=== PATIENT | male | born 1990 | race African-American/Black ===

== ENCOUNTER 2018-07-07 19:42 | Emergency (ER) | payer OTHER ==
[2018-07-07 20:04] VITALS: BP 125/81; PULSE 73; RESP 18; TEMP 97.8
[2018-07-07] MEDS ORDERED: LIDOCAINE 1% INJ 10MG/ML (20 ML MDV) SQ ONE (20:14)
[2018-07-07] MEDS ORDERED: IBUPROFEN 800 MG TAB PO STA (21:17)
--- NOTE | 2018-07-07 21:17 | ED ---
Wound/Laceration HPI - General Chief Complaint: Wound/Laceration Stated Complaint: laceration on forehead Source: patient Mode of arrival: ambulatory Limitations: no limitations - History of Present Illness Initial Comments: 28-year-old male with past medical history of substance abuse presenting today from [place] for right forehead laceration. Patient states at 1:15 PM this afternoon he was opening a door and opened onto his right forehead. He denies fall, loss of conscious, headache, nausea, vomiting, dizziness, diplopia , visual changes or vision loss following incident. Patient denies any bruising of the eyes or swelling. Patient states it hit the right side of forehead just superior to the right eyebrow. Patient states he thought that the area might need sutures and presents emergency department for evaluation. Patient states that his tetanus is up-to-date in the last 5 years. Remainder of ROS negative, patient denies any recent fever, chills, shortness of breath, chest pain, back pain, abdominal pain, nausea or vomiting, numbness or tingling , dysuria or hematuria, constipation or diarrhea, or any other complaints. - Related Data Allergies Allergy/AdvReac Type Severity Reaction Status Date / Time No Known Allergies Allergy Verified 07/07/18 20:04 Review of Systems ROS Statement: Those systems with pertinent positive or pertinent negative responses have been documented in the HPI. ROS Other: All systems not noted in ROS Statement are negative. Past Medical History Past Medical History: No Reported History History of Any Multi-Drug Resistant Organisms: None Reported Past Surgical History: No Surgical Hx Reported Past Psychological History: No Psychological Hx Reported Smoking Status: Current every day smoker Past Alcohol Use History: None Reported Past Drug Use History: Cocaine, Heroin, Marijuana General Exam - General Exam Comments Initial Comments: General: The patient is awake and alert, in no distress, and does not appear acutely ill. Eye: +3 mm pupils are equal, round and reactive to light, extra-ocular movements are intact. No nystagmus. There is normal conjunctiva bilaterally. No signs of icterus. Ears, nose, mouth and throat: There are moist mucous membranes and no oral lesions. Neck: The neck is supple, there is no tenderness or JVD. Cardiovascular: There is a regular rate and rhythm. No murmur, rub or gallop is appreciated. Respiratory: Lungs are clear to auscultation, respirations are non-labored, breath sounds are equal. No wheezes, stridor, rales, or rhonchi. Musculoskeletal: Normal ROM, no tenderness. Strength 5/5. Sensation intact. Pulses equal bilaterally 2+. Neurological: A&O x 3. CN II-XII intact, There are no obvious motor or sensory deficits. Coordination appears grossly intact. Speech is normal. Skin: Skin is warm and dry and no rashes. 1.5 cm aspiration superficial of the right forehead just superior to the right mid eyebrow. no exposure of underlying structures. No raccoon or Lovelace sign. No soft tissue swelling of the orbits. No palpable defect of the orbits. Equal in comparison to palpation bilaterally. Psychiatric: Cooperative, appropriate mood & affect, normal judgment. Limitations: no limitations Course Vital Signs 07/07/18 20:02 Temperature 97.8 F Pulse Rate 73 Respiratory 18 Rate Blood Pressure 125/81 O2 Sat by Pulse 100 Oximetry Procedures - Laceration Laceration #1 Consent Obtained: verbal consent Indication: laceration Site: face (forehead) Size (cm): 1 Description: linear Depth: simple, single layer Anesthetic Used: lidocaine 1% Anesthesia Technique: local infiltration Amount (mls): 3 Pre-repair: wound explored, irrigated extensively, deep structures intact Type of Sutures: nylon Size of Sutures: 6-0 Number of Sutures: 4 Technique: simple, interrupted Patient Tolerated Procedure: well, no complications Medical Decision Making - Medical Decision Making 1-year-old male to right forehead laceration. no orbital injury. No loss of consciousness, no history or findings concerning for concussion. Laceration was repaired using 4, 6.0 nylon sutures. Patient tolerated procedure well. Wound was extensively irrigated prior to procedure. Sterile measures used. Patient tolerated procedure well. Patient instructed to follow-up in 5 days for suture removal. Patient educated on signs and symptoms of infection. Patient verbalized understanding. Return parameters discussed at length patient who verbalizes understanding. Discussed case with Dr. Villalpando this time to fill patient is stable for discharge Disposition Clinical Impression: Laceration of forehead without complication Disposition: HOME SELF-CARE Condition: Good Instructions (If sedation given, give patient instructions): Care For Your Stitches (ED), Laceration (ED) Additional Instructions: Please use medication as discussed. Please follow-up with family doctor in the next 2 days . Return for suture removal in 5 days, 07/12/18. Please return to emergency room if the symptoms increase or worsen or for any other concerns. Is patient prescribed a controlled substance at d/c from ED?: No Referrals: None,Stated [Primary Care Provider] - 1-2 days [facility] [[facility]FF] - 1-2 days Time of Disposition: 21:17
== END 2018-07-07 21:29 | disposition home or self-care (01) ==
LOC: EC 19:42
DX: S01.81XA Laceration without foreign body of other part of head, initial encounter (principal); F17.200 Nicotine dependence, unspecified, uncomplicated; W22.8XXA Striking against or struck by other objects, initial encounter
CPT/HCPCS: 99282; 12011; J2001